=== PATIENT | female | born 1970 | race Two or more races ===

== ENCOUNTER 2016-11-07 11:14 | Emergency (ER) | payer OTHER | END 2016-11-07 12:42 | disposition home or self-care (01) | DX: S32.10XA Unspecified fracture of sacrum, initial encounter for closed fracture (principal); S30.0XXA Contusion of lower back and pelvis, initial encounter; W10.9XXA Fall (on) (from) unspecified stairs and steps, initial encounter; Y93.89 Activity, other specified; Y92.89 Other specified places as the place of occurrence of the external cause; Y99.8 Other external cause status | CPT/HCPCS: 72110; 72220; 99284; A4606; Z7610 ==